=== PATIENT | male | born 1995 | race Caucasian/White ===

== ENCOUNTER 2017-05-23 08:17 | Emergency (ER) | payer BC ==
[~2017-05-23] VITALS: Ht 188 cm; Wt 93.0 kg
[2017-05-23] MEDS ORDERED: SODIUM CHLORIDE 0.9% 1000ML 1,000 ML IV STA ×2 (08:28→10:51)
[2017-05-23] MEDS ORDERED: ONDANSETRON INJ 2 MG/ML 2 ML VIAL IV STA (08:28)
[2017-05-23] MEDS ORDERED: KETOROLAC TROMETHAMINE 30 MG/ML VIAL IV STA (08:28)
[2017-05-23 08:30] VITALS: Ht 188 cm; Wt 93.0 kg
[2017-05-23] MEDS: MoRPHine SULFATE 4 MG/ML 1 ML CARP\\VIAL IV PRN ×2 (08:37→09:42)
--- NOTE | 2017-05-23 08:37 | EMERGENCY ROOM VISIT NOTE ---
History Report prepared by Hetal: Ashley Maravilla Under the Supervision of: Dr. Leonard Lnusford M.D. First contact with patient: 08:25 Chief Complaint: BACK PAIN Stated Complaint: BACK PAIN LEFT VRIE-[id number] OF KIDNEY STO History of Present Illness The patient is a 22 year old male who presents to the Emergency Room with complaints of persistent left sided flank pain that began 1 hour and 45 minutes prior to arrival. He currently rates his discomfort as an 8/10 in severity. The patient states that he was woken around 0645 with intense left flank pain. He states that his father has had kidney stones in the past, but denies any personal history of kidney stones. The patient states that he has been feeling nauseous and states that he has vomited several times. He states that he has noticed left testicular soreness. The patient states that he has been unable to urinate this morning. He states that he has been having difficulty sitting still. The patient denies any active medical problems or being on regular medications. Source of History: patient Onset: 1 hour and 45 minutes prior to arrival Position: other (left flank) Symptom Intensity: 8/10 Timing: other (persistent) Associated Symptoms: + nausea, + vomiting Note: Associated Symptoms: testicular soreness Review of Systems See HPI for pertinent positives & negatives. A total of 10 systems reviewed and were otherwise negative. Past Medical & Surgical Medical Problems: (1) No active medical problems Family History Kidney stones Social History Smoking Status: Never Smoker Occupation Status: [employer] student Current/Historical Medications Scheduled Ondasetron Odt (Zofran Odt), 4 MG SL Q6H Tamsulosin Hcl (Flomax), 0.4 MG PO DAILY Scheduled PRN Oxycodone Ir (Roxicodone Ir), 1-2 TAB PO Q4H PRN for Pain Allergies Coded Allergies: Cat Hair Extract (Unverified Allergy, Unknown, HIVES, 05/23/17) Physical Exam Vital Signs Date Time Temp Pulse Resp B/P (MAP) Pulse Ox O2 Delivery O2 Flow Rate FiO2 05/23/17 12:27 76 18 127/77 99 05/23/17 12:12 76 18 127/77 99 Room Air 05/23/17 11:28 69 18 143/90 98 Room Air 05/23/17 10:45 67 16 121/68 100 Room Air 05/23/17 09:45 67 16 130/71 99 Room Air 05/23/17 08:30 67 20 131/84 100 Room Air Physical Exam GENERAL: Patient is in no acute distress. HEENT: No acute trauma, normocephalic atraumatic, mucous membranes moist, no nasal congestion, no scleral icterus. NECK: No stridor, no adenopathy, no meningismus, trachea is midline. LUNGS: Clear to auscultation bilaterally, no wheeze, no rhonchi, breath sounds equal. HEART: Without murmurs gallops or rubs, regular rate and rhythm. ABDOMEN: Soft, tender along entire left side, bowel sounds positive, no hernias , no peritonitis. EXTREMITIES: No cyanosis or edema, full range of motion of all the joints without pain or difficulty, no signs for acute trauma. NEUROLOGIC: Oriented x 3, no acute motor or sensory deficits, no focal weakness. SKIN: Pale. No rash, no jaundice, no diaphoresis. Medical Decision & Procedures ER Provider Diagnostic Interpretation: CT results as stated below per my review and radiologist interpretation: CT OF THE ABDOMEN AND PELVIS WITHOUT CONTRAST, STONE PROTOCOL CLINICAL HISTORY: Left flank pain and hematuria. COMPARISON STUDY: None. TECHNIQUE: Helical axial images of the abdomen and pelvis were obtained without IV or oral contrast according to renal stone protocol. A dose lowering technique was utilized adhering to the principles of ALARA. FINDINGS: A 4 mm left ureterovesical junction calculus results in mild left hydroureteronephrosis with mild perinephric and periureteral infiltration. A 3 mm calculus within the lower pole of the left kidney is present. There is no right hydronephrosis. No right-sided urinary calculi are identified. Evaluation of the remainder of the abdomen and pelvis is suboptimal on this unenhanced exam. The liver, spleen, adrenal glands and pancreas are unremarkable. There is no evidence for a bowel obstruction. The appendix is normal. There is no lymphadenopathy. No suspicious skeletal lesions are present. Trace fluid within the pelvis is noted. IMPRESSION: 1. 4 mm left ureterovesical junction calculus which results in mild left hydroureteronephrosis. Mild left perinephric/periureteral infiltration. 2. 3 mm left renal calculus. 3. Trace fluid within the pelvis. Electronically signed by: Antolin Olmstead M.D. 05/23/2017 9:04 AM Dictated Date/Time: 05/23/2017 8:58 AM Laboratory Results 05/23/17 08:30 05/23/17 08:30 Test 05/23/17 08:30 05/23/17 11:15 Red Blood Count 4.91 M/uL (4.7-6.1) Mean Corpuscular Volume 87.8 fL (80-100) Mean Corpuscular Hemoglobin 30.1 pg (25-34) Mean Corpuscular Hemoglobin Concent 34.3 g/dl (32-36) RDW Standard Deviation 42.0 fL (36.4-46.3) RDW Coefficient of Variation 13.0 % (11.5-14.5) Mean Platelet Volume 10.2 fL (7.4-10.4) Anion Gap 7.0 mmol/L (3-11) Est Creatinine Clear Calc Drug Dose 137.1 ml/min Estimated GFR () 125.0 Estimated GFR (Non- 107.9 BUN/Creatinine Ratio 10.7 (10-20) Calcium Level 9.2 mg/dl (8.5-10.1) Urine Color DK YELLOW Urine Appearance TURBID (CLEAR) Urine pH 5.5 (4.5-7.5) Urine Specific [place] 1.030 (1.000-1.030) Urine Protein TRACE (NEG) Urine Glucose (UA) NEG (NEG) Urine Ketones TRACE (NEG) Urine Occult Blood 3+ (NEG) Urine Nitrite NEG (NEG) Urine Bilirubin NEG (NEG) Urine Urobilinogen NEG (NEG) Urine Leukocyte Esterase NEG (NEG) Urine WBC (Auto) 1-5 /hpf (0-5) Urine RBC (Auto) >30 /hpf (0-4) Urine Hyaline Casts (Auto) 10-30 /lpf (0-5) Urine Epithelial Cells (Auto) 10-20 /lpf (0-5) Urine Bacteria (Auto) NEG (NEG) Laboratory results reviewed by me. Medications Administered Medications (Trade) Dose Ordered Sig/Britton Route Start Time Stop Time Status Last Admin Dose Admin Ondansetron HCl (Zofran Inj) 4 mg NOW STAT IV 05/23/17 08:28 05/23/17 08:30 DC 05/23/17 08:36 4 MG Sodium Chloride 1,000 ml @ 999 mls/hr Q1H1M STAT IV 05/23/17 08:28 05/23/17 09:28 DC 05/23/17 08:37 999 MLS/HR Morphine Sulfate (MoRPHine SULFATE INJ) 4 mg Q15M PRN IV 05/23/17 08:30 05/23/17 12:36 DC 05/23/17 09:42 4 MG Ketorolac Tromethamine (Toradol Inj) 30 mg NOW STAT IV 05/23/17 08:28 05/23/17 08:30 DC 05/23/17 08:37 30 MG Promethazine HCl 6.25 mg/Sodium Chloride 50.25 ml @ 204 mls/hr NOW STAT IV 05/23/17 09:34 05/23/17 09:48 DC 05/23/17 09:58 204 MLS/HR Sodium Chloride 1,000 ml @ 999 mls/hr Q1H1M STAT IV 05/23/17 10:51 05/23/17 11:51 DC 05/23/17 10:51 999 MLS/HR Tamsulosin HCl (Flomax Cap) 0.4 mg NOW ONCE PO 05/23/17 12:15 05/23/17 12:16 DC 05/23/17 12:15 0.4 MG ED Course 0827: The patient was evaluated in room A2. A complete history and physical exam was performed. 0828: Ordered Toradol Inj 30 mg IV, Sodium Chloride 1000 ml @ 999 mls/hr IV, Zofran Inj 4 mg IV. 0830: Ordered Morphine Sulfate 4 mg IV. 0934: I reevaluated the patient and he is experiencing more nausea. Ordered Promethazine HCl 6.25 mg/Sodium Chloride 50.25 ml @ 204 mls/hr IV. 1051: Ordered Sodium Chloride 1000 ml @ 999 mls/hr IV. 1201: I reevaluated the patient and he is doing well. I discussed the exam findings with him and I discussed the treatment plan. He verbalized complete understanding and agreement. He is ready to go home. 1215: Ordered Flomax Cap 0.4 mg PO. Medical Decision The patient is a 22 year old male who presents to the ED with complaints of left flank pain. Differential diagnoses considered include renal colic, kidney infection, UTI, diverticulitis, musculoskeletal pain, renal failure. There is no leukocytosis or concerning anemia. No significant electrolyte abnormality or kidney failure. Abdominal and pelvis CT shows a distal left ureteral stone with hydronephrosis. Urinalysis shows hematuria, no infection. The patient received IV saline, IV Toradol, IV Zofran. He was given IV morphine and eventually a dose of IV Phenergan. He received oral Flomax. The patient is doing well. I do think he can be discharged to try to pass the stone naturally. Flomax, Motrin, Zofran and oxycodone were prescribed. He will follow with his doctor and possibly urology if not passing the stone. [place] Drug Monitoring Program Search Results: patient reviewed within database, no issues identified Impression Primary Impression: Renal colic Additional Impressions: Vomiting Hematuria Scribe Attestation The scribe's documentation has been prepared under my direction and personally reviewed by me in its entirety. I confirm that the note above accurately reflects all work, treatment, procedures, and medical decision making performed by me. Departure Information Dispostion Home / Self-Care Prescriptions Tamsulosin Hcl (FLOMAX) 0.4 Mg Cap 0.4 MG PO DAILY, #10 CAP Prov: Leonard Lunsford M.D. 05/23/17 Oxycodone Ir (Roxicodone Ir) 5 Mg Tab 1-2 TAB PO Q4H Y for Pain, #10 TAB Prov: Leonard Lunsford M.D. 05/23/17 Ondasetron Odt (ZOFRAN ODT) 4 Mg Tab 4 MG SL Q6H for Nausea, #12 TAB Prov: Leonard Lunsford M.D. 05/23/17 Referrals No Doctor, Assigned (PCP) Forms HOME CARE DOCUMENTATION FORM, IMPORTANT VISIT INFORMATION, School Instructions Patient Instructions My [facility] Additional Instructions fluids rest strain all the urine see fam doctor as you may need a urology referral if not passing the stone zofran 1-2 tab every 4 hours for pain motrin/advil 600 mg every 6 hours as needed for pain oxy ir 1-2 tab every 4 hours as needed for severe pain return for fever, vomiting or uncontrolled pain flomax daily to help the stone pass Problem Qualifiers
[2017-05-23 08:42] LABS: HEMATOCRIT 43.1 % (42-52); MEAN CELL VOLUME 87.8 fL (80-100); MEAN CORPUSCULAR HEMOGLOBIN 30.1 pg (25-34); MEAN CORPUSCULAR HGB CONC 34.3 g/dl (32-36); MEAN PLATELET VOLUME 10.2 fL (7.4-10.4); PLATELET COUNT 196 K/uL (130-400); RED BLOOD COUNT 4.91 M/uL (4.7-6.1); WHITE BLOOD COUNT 5.58 K/uL (4.8-10.8)
[2017-05-23 08:59] LABS: BUN/CREATININE RATIO 10.7 (10-20); CALCIUM 9.2 mg/dl (8.5-10.1); POTASSIUM 3.3 mmol/L (3.5-5.1)
--- NOTE | 2017-05-23 09:05 | DIAGNOSTIC IMAGING REPORT ---
CT OF THE ABDOMEN AND PELVIS WITHOUT CONTRAST, STONE PROTOCOL CLINICAL HISTORY: Left flank pain and hematuria. COMPARISON STUDY: None. TECHNIQUE: Helical axial images of the abdomen and pelvis were obtained without IV or oral contrast according to renal stone protocol. A dose lowering technique was utilized adhering to the principles of ALARA. FINDINGS: A 4 mm left ureterovesical junction calculus results in mild left hydroureteronephrosis with mild perinephric and periureteral infiltration. A 3 mm calculus within the lower pole of the left kidney is present. There is no right hydronephrosis. No right-sided urinary calculi are identified. Evaluation of the remainder of the abdomen and pelvis is suboptimal on this unenhanced exam. The liver, spleen, adrenal glands and pancreas are unremarkable. There is no evidence for a bowel obstruction. The appendix is normal. There is no lymphadenopathy. No suspicious skeletal lesions are present. Trace fluid within the pelvis is noted. IMPRESSION: 1. 4 mm left ureterovesical junction calculus which results in mild left hydroureteronephrosis. Mild left perinephric/periureteral infiltration. 2. 3 mm left renal calculus. 3. Trace fluid within the pelvis. Electronically signed by: Antolin Olmsetad M.D. 05/23/2017 9:04 AM Dictated Date/Time: 05/23/2017 8:58 AM
[2017-05-23] MEDS ORDERED: PROMETHAZINE HCL INJ 6.25 MG in SODIUM CHLORIDE 0.9% 50ML 50 ML IV STA (09:34)
[2017-05-23 11:45] LABS: URINE APPEARANCE TURBID (CLEAR); URINE BILIRUBIN NEG (NEG); URINE COLOR DK YELLOW; URINE NITRITE NEG (NEG); URINE PH 5.5 (4.5-7.5); UROBILINOGEN NEG (NEG); ZZUR CULT IF INDIC CLEAN CATCH NO
[2017-05-23 11:47] LABS: MANUAL MICROSCOPIC REQUIRED? NO; REVIEW REQ? NO
[2017-05-23] MEDS ORDERED: TAMSULOSIN HCL 0.4 MG CAP PO ONE (12:15)
[2017-05-23] MEDS ORDERED: OXYC1TAB3 PO (12:16)
[2017-05-23] MEDS ORDERED: TAMS0.4C38 PO (12:16)
[2017-05-23] MEDS ORDERED: ONDA4TAB10 SL (12:16)
[2017-05-23 12:27] VITALS: BP 127/77; PULSE 76; O2SAT 99
== END 2017-05-23 12:28 | disposition home or self-care (01) ==
LOC: C.EDB 08:19 → C.EDA 12:28
DX: N23 Unspecified renal colic (principal); R11.10 Vomiting, unspecified; R31.9 Hematuria, unspecified; N20.0 Calculus of kidney